=== PATIENT | female | born 1940 | race Caucasian/White ===

== ENCOUNTER → 2018-10-27 | Outpatient (REF) | payer MEDICARE, OTHER ==
[~2018-10-27] MED LIST: ATENOLOL25 MG PO; BABY ASPIRIN81 MG PO; BACLOFEN10 MG PO; CETIRIZINE10 MG PO; CIPROFLOXACN500 MG PO; CLARITIN10 M2 PO; FLONASE NASAL50 MCG; FLUARIX QUADRIV1 IN1 IM; FLUZONE SPLT1 M1 IM; FLUZONE1 M1 IM; HYDROCHLOROT25 MG PO; K-TABS10 MEQ PO; KEFLEX500 M1 PO; MAXZIDE-2537.5 MG/TA PO; METFORMIN500 MG PO; NABUMETONE500 MG PO; NABUMETONE750 MG PO; NEXIUM40 M1 PO; PREVACID15 M3 PO; PREVACID30 M3 PO; PRILOSEC OTC20 MG PO; PRILOSEC20 MG PO; PRILOSEC20 MG/CAP PO; RANITIDINE150 MG PO; RANITIDINE75 M3 PO; SULINDAC200 MG PO; TIZANIDINE HCL2 MG PO; XALATAN0.005 % OP; XANAX0.5 MG PO; XANAX1 MG OR; XANAX1 MG PO; ZOCOR10 MG PO; ZOLOFT50 MG PO; ZPAK PO
== END | disposition home or self-care (01) ==
LOC: ULTRASND 10:34
PROVIDERS: ATTEND Nurse Practitioner Family
DX: R22.1 Localized swelling, mass and lump, neck (principal)

== ENCOUNTER 2022-01-15 07:49 | Day surgery (SDC) | payer MEDICARE ==
[~2022-01-15] VITALS: Ht 160 cm; Wt 61.7 kg
[~2022-01-15 07:49] MED LIST changes: +CRANBERR3 PO; +MAGNESIUM64 MG PO; +VITAMIN B COMPL1 TAB PO; +VITAMIN D-3400 UNIT PO; +VITAMIN E400 UNIT PO
[2022-01-15 10:52] VITALS: BP 163/85
== END 2022-01-15 10:17 | disposition home or self-care (01) ==
LOC: ENDO 07:49
PROVIDERS: ATTEND Surgery
PROC: 0DJD8ZZ Inspection of Lower Intestinal Tract, Via Natural or Artificial Opening Endoscopic (ICD-10-PCS; principal; 2022-01-15)
DX: Z12.11 Encounter for screening for malignant neoplasm of colon (principal); I10 Essential (primary) hypertension; E11.9 Type 2 diabetes mellitus without complications; Z79.84 Long term (current) use of oral hypoglycemic drugs; Z86.010 Personal history of colon polyps